=== PATIENT | female | born 1995 | race Two or more races ===

== ENCOUNTER 2024-01-13 17:01 | Inpatient (IN) | payer OTHER, SELFPAY ==
[2024-01-13] VITALS (16 sets, daily range): BP systolic 112–132; BP diastolic 62–114; PULSE 63–108; TEMP 36.3
[2024-01-13 18:08] LABS: Basophils Percent Auto 0.2 % (0.2-1.2); Eosinophils Absolute Auto 0.1 K/mm3 (0-0.3); Eosinophils Percent Auto 1.1 % (0-4.4); Hematocrit 35.9 % (37.0-47.0); Hemoglobin 12.2 g/dL (12.0-15.0); Immature Granulocyte Absolute 0.09 K/mm3 (0.00-0.031); Immature Granulocyte Percent A 0.9 % (0-0.5); Lymphocytes Absolute Auto 2.71 K/mm3 (0.9-3.2); Lymphocytes Percent Auto 26.8 % (18.3-44.2); Mean Corpuscular Hemoglobin 28.9 pg (26-34); Mean Corpuscular Volume 85.1 fl (80-100); Monocytes Absolute Auto 0.6 K/mm3 (0.1-0.6); Monocytes Percent Auto 5.9 % (2.6-8.5); Neutrophils Absolute Auto 6.6 K/mm3 (1.3-6.7); Neutrophils Percent Auto 65.1 % (45.5-73.1); Platelet Count Result 217 k/mm3 (150-375); Red Blood Count 4.22 M/mm3 (4.2-5.4); Red Cell Distribution Width 15.2 % (11.5-14.5); White Blood Count 10.1 K/mm3 (4.5-10.0)
[2024-01-13 18:18] LABS: Alanine Aminotransferase 12 U/L (6-35); Albumin Level 3.6 g/dL (3.5-5.1); Alkaline Phosphatase 134 U/L (38-126); Anion Gap 9 mmol/L (4-12); Aspartate Amino Transferase 30 U/L (14-36); Bilirubin,Total 0.1 mg/dL (0.2-1.3); Blood Urea Nitrogen 10 mg/dL (7-17); Calcium 9.1 mg/dL (8.4-10.2); Carbon Dioxide 19 mmol/L (22-30); Chloride 106 mmol/L (98-107); Estimated Glomerular Filt Rate > 60; Glucose 77 mg/dL (65-110); Potassium 3.9 mmol/L (3.4-5.0); Sodium 134 mmol/L (137-145); Uric Acid 3.8 mg/dL (2.5-7.5)
[2024-01-13] MEDS: DINOPROSTONE 10 MG VAG INSERT VAGINAL (18:18)
[2024-01-13 18:33] LABS: Rapid Plasma Reagin Non-Reactive (NonReactive)
[2024-01-13 18:58] LABS: HIV 1/2 Ab P24 Ag Result Negative (Negative)
--- NOTE | 2024-01-13 19:11 | LDADM ---
This patient, Dayana June, was admitted to Labor/Delivery/Recovery 105 on 01/13/24 at 17:01. Plans for labor, pain management and were discussed with patient. Patient/family oriented to hospital policies and general routines including ID bracelet, bed and alarms, visiting hours, pain management, procedures, bathroom and other care routines, personal items, smoking policy, room service/diet and guest tray routines, security routines, and visiting hours. Patient/Family are encouraged to report perceived risks to care and to ask questions if they do not understand what they are told or what they should do. See OBIX for further documentation.
--- NOTE | 2024-01-13 19:13 | WPDANESEPP ---
Anes - Eval Pre Procedure Procedure: Labor epidural Date/Time: 01/13/24 19:13 Surgeon: Dia Gregory Preop Diagnosis: Abdominal pain with contractions Pre Op Diagnosis: Induction of Labor Patient Data Age: 28 Gender: F Height: Weight: Last Vital Signs Temp 97.4 F L 01/13/24 19:00 Pulse 78 01/13/24 19:00 BP 124/80 01/13/24 19:00 Laboratory Tests 01/13/24 01/13/24 01/13/24 17:27 17:27 17:36 WBC 10.1 H K/mm3 (4.5-10.0) RBC 4.22 M/mm3 (4.2-5.4) Hgb 12.2 g/dL (12.0-15.0) Hct 35.9 L % (37.0-47.0) MCV 85.1 fl (80-100) MCH 28.9 pg (26-34) MCHC 34.0 g/dl (32-36) RDW 15.2 H % (11.5-14.5) Plt Count 217 k/mm3 (150-375) MPV 12.0 H fl (7.4-10.4) Immature Gran % (Auto) 0.9 H % (0-0.5) Neut % (Auto) 65.1 % (45.5-73.1) Lymph % (Auto) 26.8 % (18.3-44.2) [place] % (Auto) 5.9 % (2.6-8.5) Eos % (Auto) 1.1 % (0-4.4) Baso % (Auto) 0.2 % (0.2-1.2) Lymph # (Auto) 2.71 K/mm3 (0.9-3.2) [place] # (Auto) 0.6 K/mm3 (0.1-0.6) Eos # (Auto) 0.1 K/mm3 (0-0.3) Baso # (Auto) 0.0 K/mm3 (0.0-0.1) Abs Immat Gran (auto) 0.09 H K/mm3 (0.00-0.031) Absolute Neuts (auto) 6.6 K/mm3 (1.3-6.7) Absolute Nucleated RBC 0.000 K/mm3 (0.0-0.012) Nucleated RBC % 0.0 % (0.0-0.2) Sodium 134 L mmol/L (137-145) Potassium 3.9 mmol/L (3.4-5.0) Chloride 106 mmol/L (98-107) Carbon Dioxide 19 L mmol/L (22-30) Anion Gap 9 mmol/L (4-12) BUN 10 mg/dL (7-17) Creatinine 0.60 L mg/dL (0.7-1.0) Estim Creat Clear Calc Not Reportable Estimated GFR > 60 (59 - ) Glucose 77 mg/dL (65-110) Uric Acid Cancelled 3.8 mg/dL (2.5-7.5) Calcium 9.1 mg/dL (8.4-10.2) Total Bilirubin 0.1 L mg/dL (0.2-1.3) AST 30 U/L (14-36) ALT 12 U/L (6-35) Alkaline Phosphatase 134 H U/L (38-126) Total Protein 7.0 g/dL (6.3-8.2) Albumin 3.6 g/dL (3.5-5.1) RPR Non-reactive (NonReactive) HIV 1&2 Ab/P24 Ag 4thGn Negative (Negative) Blood Type O Positive Antibody Screen Negative : gestational age HCG: positive Patient hx anesthesia problems: none Family hx anesthesia problems: none Results Review: All pre-operative results and documents have been reviewed as part of the pre-operative evaluation. [facility] Past Medical History Medical History Obesity Preeclampsia and not yet delivered Exam Day of Procedure 01/13/24 19:13 Patient weight: obese Heart: regular rate and rhythm Airway: Mallampati scale class II
[2024-01-14] VITALS (247 sets, daily range): BP systolic 85–153; BP diastolic 45–137; PULSE 62–152; RESP 16–22; TEMP 36.5–37.5; O2SAT 60–100; BMI 47.4
[2024-01-14] MEDS: LACTATED RINGERS 1,000 ML 125 ML IV CONT ×3 (05:11→17:08)
[2024-01-14] MEDS: OXYTOCIN 30 UNITS/NS 500 ML 30 UNITS/500 ML BAG 6 UNITS IV CONT (05:11)
--- NOTE | 2024-01-14 07:25 | PM.IMHP ---
H&P: HPI History of Present Illness Date/Time: 01/14/24 07:25 Chief Complaint: Postdates with hypertension Narrative: twin D 8-year-old 1 para 0 with last menstrual period of 04/06/2023 EDC of 11 January 2024 confirmed by early ultrasound presents at term for induction of labor secondary to elevated blood pressures blood pressures been rising with the last in the office at 111 diastolic she had PIH labs drawn here the role okay in her blood pressure is recovering in the 90s diastolics. She is negative for group B strep PMFSH Past Medical History Medical History Obesity Preeclampsia and not yet delivered Social History Social History Smoking status: Never smoker Second hand tobacco smoke exposure: No Substance use: never Do You Feel Safe in your Home?: Yes Lack of Transportation: No Lack of Food: Never True Current Housing: I Have Housing Concerned About Future Housing: No Difficulty Paying Gas/Electric Bills: No Difficulty Paying for Meds: No Currently Unemployed: No Education: Bachelor's Degree Difficulty w/ Childcare or Family Care: No Spiritual care concerns: No Meds Home Medications and Allergies Home Medications Medication Instructions Recorded Confirmed Type vits 75-iron 28 mg-folic 1 pkg PO DAILY 01/13/24 01/13/24 History acid 800 mcg-omega3 440 mg oral pack Allergies Allergy/AdvReac Type Severity Reaction Status Date / Time Penicillins AdvReac Anaphylaxis Verified 01/14/24 05:11 Vital Signs Vital Signs - 24 hr 01/13/24 18:30 01/13/24 18:45 01/13/24 19:00 Temperature 97.4 F L Pulse Rate 82 78 Blood Pressure 122/86 132/114 H 124/80 Pulse Oximetry Oxygen Delivery 01/13/24 19:15 01/13/24 19:30 01/13/24 19:40 Temperature Pulse Rate 108 H 86 87 Blood Pressure 115/86 119/92 H 118/83 Pulse Oximetry Oxygen Delivery 01/13/24 19:50 01/13/24 20:00 01/13/24 20:10 Temperature Pulse Rate 80 75 97 Blood Pressure 131/74 122/81 116/82 Pulse Oximetry Oxygen Delivery 01/13/24 20:20 09/12/24 20:30 01/13/24 22:02 Temperature Pulse Rate 73 103 H 79 Blood Pressure 126/62 119/88 113/79 Pulse Oximetry Oxygen Delivery 01/13/24 22:30 01/13/24 23:00 01/13/24 23:30 Temperature Pulse Rate 69 63 95 Blood Pressure 121/76 129/83 112/78 Pulse Oximetry Oxygen Delivery 01/14/24 00:00 01/14/24 00:30 01/14/24 01:01 Temperature Pulse Rate 76 76 84 Blood Pressure 117/83 99/61 L 85/58 L Pulse Oximetry Oxygen Delivery 01/14/24 01:00 01/14/24 01:06 01/14/24 01:30 Temperature 97.8 F Pulse Rate 85 81 Blood Pressure 114/82 109/54 L Pulse Oximetry Oxygen Delivery 01/14/24 02:00 01/14/24 02:30 01/14/24 03:00 Temperature Pulse Rate 69 77 96 Blood Pressure 106/60 107/60 113/81 Pulse Oximetry Oxygen Delivery 01/14/24 03:30 01/14/24 04:00 01/14/24 04:30 Temperature Pulse Rate 72 78 95 Blood Pressure 103/61 111/68 122/82 Pulse Oximetry Oxygen Delivery 01/14/24 05:01 01/14/24 05:30 01/14/24 05:37 Temperature Pulse Rate 80 76 Blood Pressure 118/61 101/75 Pulse Oximetry 100 Oxygen Delivery 01/14/24 05:42 01/14/24 05:47 01/14/24 05:52 Temperature Pulse Rate Blood Pressure Pulse Oximetry 98 99 98 Oxygen Delivery 01/14/24 05:57 01/14/24 06:00 01/14/24 06:02 Temperature Pulse Rate 76 Blood Pressure 116/69 Pulse Oximetry 97 99 Oxygen Delivery 01/14/24 06:07 01/14/24 06:12 01/14/24 06:17 Temperature Pulse Rate Blood Pressure Pulse Oximetry 98 99 97 Oxygen Delivery 01/14/24 06:22 01/14/24 06:27 01/14/24 06:30 Temperature Pulse Rate 97 Blood Pressure 112/72 Pulse Oximetry 98 98 Oxygen Delivery 01/14/24 06:32
--- NOTE | 2024-01-14 11:38 | PM.OBPNLAB ---
Pain Control Date/time seen: 01/14/24 11:38 Pain control: tolerating well and epidural Pelvic Exam Dilation (cm): 4 Effacement (%): 90 station: -2 Amniotic membrane status: Leaking Comments: iupc placed
[2024-01-14] MEDS: ONDANSETRON INJ 4 MG/2 ML VIAL IV PUSH ×2 (14:19→19:23)
[2024-01-14] MEDS: AZITHROMYCIN 500 MG/NS 250 ML 500 MG/250 ML BAG 250 MG IVPB (21:37)
[2024-01-14] MEDS: FAMOTIDINE 20 MG/2 ML VIAL IV PUSH (21:37)
[2024-01-14] MEDS: ceFAZolin 2 GM/D5W 50 ML 2 GM/50 ML BAG IVPB (21:37)
[2024-01-14] MEDS: ACETAMINOPHEN 500 MG TABLET 1000 MG PO (21:38)
--- NOTE | 2024-01-14 21:43 | WPDHPUPDATE1 ---
History and Physical Update Update Date/Time: 01/14/24 21:43 History and Physical has been reviewed, including an updated exam of the patient. There are NO changes in the patient's condition. Risks, benefits, and alternatives have been discussed and questions answered. Patient agrees to proceed with procedure. fhts not tolerating and unable to push safely. offered section. risks/benefits given.
--- NOTE | 2024-01-14 22:35 | W.PM.OBCSD ---
OB - Delivery Note Procedure Delivery date: 01/14/24 Pre-op diagnosis: Gestational Hypertension Post-op Diagnosis: Same Induction method: Per Cervidil Protocol Delivery augmentation: Rupture of Membranes and Pitocin Delivery monitor: Internal FHT and Internal Uterine Prior to decision for section, ACOG/SMFM labor guidelines were considered and discussed with the patient and staff. Decision made to proceed with the section.: Yes Procedure Performed: Primary Surgeon: Haroon Gregory MD Anesthesia type: Epidural Description of Procedure/Findings: Was admitted for induction of labor on 01/13/2024. The a.m. artificial rupture membranes performed wrist very slow 1st stage of labor got to completely dilated but had recurrent late deceleration is and could not bring the baby past the +1 station. She was offered low-transverse section and taken to the back. The patient was prepped draped in the normal sterile fashion placed in the supine position. Under excellent epidural anesthesia the abdomen was entered in Pfannenstiel fashion progressive layers to the fascia. Fascia incised midline care number fashion bilaterally underlying muscles sharply dissected. Parietal peritoneum a by Janice clamps and by sharp dissection carried this was carried superiorly and inferiorly the dome of the bladder. Bladder blade placed. Bladder flap formed. Bladder blade returned. A low transverse incision made the head delivered in the SIMONE position. Cord clamped x2 and cut and passed off the table. Placenta delivered intact manually. Uterus delivered from the abdomen wrapped in a moist towel. After assuring no membranes or debris remained in the uterus, the uterus was closed in continuous running locking 0 Vicryl from lateral edge to lateral edge. This was followed by 2nd imbricating running locking 0 Vicryl from lateral edge to lateral edge. Hemostasis was assured. Ovaries and tubes appeared within normal limits the uterus returned to the abdomen. The hysterotomy incision inspected 1 last time and appeared a little raw so [place] term was placed. No active bleeding was seen. Laps removed and accounted for. The fascia closed with continuous running 0 Vicryl from lateral edge to lateral edge. Skin closed with 4 Monocryl and glue. QBL was 480cc. All sponge, needle, instrument counts were correct. There were no immediate complications Specimen: No Estimated Blood Loss: 480 Drains: No Packing: No Pathology: None sent Complications: No immediate complications Condition: Stable Disposition: Floor Baby Date of : 01/14/24 Gestational Age by Date: 40 Infant gender: Female Weight (pounds): 7 Weight (ounces): 1 presentation: vertex position: Right Occiput Anterior Placenta delivery description: Manual Removal Cord Vessel Description: 3 Vessels
--- NOTE | 2024-01-14 22:39 | PM.DS ---
DS: Admitting Diagnosis Discharge Date 01/17/2024 Admitting Diagnosis term /gestational hypertension DS: Discharge Diagnosis Discharge Diagnosis (1) Preeclampsia: Code(s): O14.90 - Unspecified pre-eclampsia, unspecified trimester Status: Acute (2) Term : Code(s): Z34.90 - Encounter for supervision of normal , unspecified, unspecified trimester Status: Acute DS: Summary Hospital Course Reason for hospitalization: patient was admitted on the evening of 01/13/2024 for induction of labor on 01/14/2024 she underwent low-transverse section for intolerance to labor. Hospital Course: Patient's hospital course unremarkable. She remained afebrile. She was up, voiding without difficulty a medium rate diet, ambulating, and generally without complaints. Time Spent with Patient Time attestation: Total time spent providing and/or coordinating discharge services: Exam Const: General: cooperative, healthy appearing, comfortable and average body habitus Orientation/consciousness: oriented to person, oriented to place and oriented to time Resp: Effort & Inspection: normal respiratory effort Cardio: Rate: regular rate Rhythm: regular rhythm Heart sounds: S1 normal heart sound present and S2 normal heart sound present GI: Inspection: normal to inspection and incision ( Wound is clean dry and intact) Discharge Plan Discharge Attending physician on discharge: Haroon Melgar Discharging Clinician: Haroon Melgar Patient Disposition: Home, Self-Care Activity: may shower, no straining and pelvic rest Diet: heart healthy Wound Care Instructions: follow printed instructions Patient Instructions: Antibiotic Form Stand Alone Forms: General Discharge Information Follow-up/Referrals: Haroon Melgar MD [Physician] - Discharge Medications: New hydrocodone-acetaminophen 5-325 mg tablet 1 tablet PO Q4H PRN (Reason: pain) Qty: 30 0RF Continued Daily 28-800-440 mg-mcg-mg Combo Pack 1 pkg PO DAILY Date of admission: 01/13/24 17:01 Primary Care Provider: UNKNOWN,DOCTOR Admitting Provider: Haroon Melgar Attending physician on admission: Haroon Melgar Condition: Stable
[2024-01-15] VITALS (21 sets, daily range): BP systolic 101–149; BP diastolic 64–86; PULSE 77–98; RESP 15–18; TEMP 36.1–36.7; O2SAT 97–100
--- NOTE | 2024-01-15 00:54 | OBPPTRN ---
Patient transferred to post room #279 via stretcher. Support person-spouse present. Oriented to unit, room, information board, rooming in, admission packet and security measures. Nursery number provided to call for updates on level 2 infant. Patient verbalizes understanding.
[2024-01-15] MEDS: KETOROLAC 15 MG/ML VIAL (*BKC) IV PUSH ×2 (01:35→07:35)
[2024-01-15] MEDS: LIDOCAINE 5% PATCH 1 PATCH TRANSDERM (01:35)
[2024-01-15] MEDS: ACETAMINOPHEN 325 MG TABLET 650 MG PO ×4 (01:35→19:48)
--- NOTE | 2024-01-15 01:59 | PC.NURSE ---
Breast pump provided due to separation from level 2 . Education and encouragement given to call out when ready to pump for assistance. Patient verbalized understanding.
[2024-01-15 04:39] LABS: Basophils Percent Auto 0.1 % (0.2-1.2); Hematocrit 28.7 % (37.0-47.0); Hemoglobin 9.3 g/dL (12.0-15.0); Immature Granulocyte Absolute 0.08 K/mm3 (0.00-0.031); Immature Granulocyte Percent A 0.6 % (0-0.5); Lymphocytes Absolute Auto 1.38 K/mm3 (0.9-3.2); Lymphocytes Percent Auto 9.6 % (18.3-44.2); Mean Corpuscular HGB Conc 32.4 g/dl (32-36); Mean Corpuscular Hemoglobin 28.4 pg (26-34); Mean Corpuscular Volume 87.8 fl (80-100); Mean Platelet Volume 11.9 fl (7.4-10.4); Monocytes Absolute Auto 0.9 K/mm3 (0.1-0.6); Monocytes Percent Auto 5.9 % (2.6-8.5); Neutrophils Absolute Auto 12.1 K/mm3 (1.3-6.7); Neutrophils Percent Auto 83.8 % (45.5-73.1); Platelet Count Result 152 k/mm3 (150-375); Red Blood Count 3.27 M/mm3 (4.2-5.4); Red Cell Distribution Width 15.4 % (11.5-14.5); White Blood Count 14.4 K/mm3 (4.5-10.0)
--- NOTE | 2024-01-15 07:18 | P.PNOB_ITS ---
OB - PN: Subj Subjective Date/time seen: 01/15/24 07:18 Patient comments: no complaints and pain well controlled baby status: doing well OB - PN: Obj Data Labs 01/15/24 04:31 01/13/24 17:27 Labs: Laboratory Results - last 24 hr 01/15/24 04:31 WBC 14.4 H RBC 3.27 L Hgb 9.3 L Hct 28.7 L MCV 87.8 MCH 28.4 MCHC 32.4 RDW 15.4 H Plt Count 152 MPV 11.9 H Immature Gran % (Auto) 0.6 H Neut % (Auto) 83.8 H Lymph % (Auto) 9.6 L [place] % (Auto) 5.9 Eos % (Auto) 0.0 Baso % (Auto) 0.1 L Lymph # (Auto) 1.38 [place] # (Auto) 0.9 H Eos # (Auto) 0.0 Baso # (Auto) 0.0 Abs Immat Gran (auto) 0.08 H Absolute Neuts (auto) 12.1 H Absolute Nucleated RBC 0.000 Nucleated RBC % 0.0 OB - PN A/P Plan day: 1 Plan: routine care Time Spent With Patient Time: Total time spent is greater than 50% in coordination of care (as documented) at patient's floor/unit and/or counseling patient: Time with patient: less than 15 minutes Exam Const: General: cooperative, healthy appearing and comfortable Nutritional Appearance: average body habitus Orientation/consciousness: oriented to person, oriented to place and oriented to time HENMT: Head: normal to inspection Resp: Effort & Inspection: normal respiratory effort Cardio: Rate: regular rate Rhythm: regular rhythm Heart sounds: S1 normal heart sound present and S2 normal heart sound present GI: Inspection: normal to inspection and incision (cdi)
[2024-01-15] MEDS: DEXTROSE 5%/0.45% SOD CHL 1,000 ML 125 ML IV CONT (07:35)
[2024-01-15] MEDS: POLYSACCHARIDE IRON COMPLEX 150 MG CAPSULE PO ×2 (07:36→17:16)
[2024-01-15] MEDS: SIMETHICONE 80 MG TAB.CHEW PO ×3 (07:37→17:16)
[2024-01-15] MEDS: DOCUSATE SODIUM 100 MG CAPSULE PO ×2 (07:37→17:16)
--- NOTE | 2024-01-15 10:13 | WPDANLDPN2 ---
Anes-Prog Note L&D Date/Time: 01/15/24 10:13 Comfortable throughout: labor and section Neuraxial method: epidural Epidural/Spinal procedure site: clean & non-tender Neuro status: Neuro function grossly intact. Cardiovascular status: normal Respiratory status: normal Airway patency: baseline Mental status: baseline Post-Op hydration status: normal Vital Signs: Last Vital Signs Temp 97.7 F 01/15/24 07:50 Pulse 88 01/15/24 07:50 Resp 18 01/15/24 07:50 BP 105/68 01/15/24 07:50 Pulse Ox 98 01/15/24 07:50 O2 Del Method Room Air 01/15/24 00:30 Pain score (VAS): 3 I/O: Intake & Output 01/14/24 01/15/24 01/15/24 23:59 07:59 15:59 Intake Total 922.9 550 Output Total 730 100 Balance 192.9 450 Post-procedural complaints: none Patient feedback: Patient satisfied with anesthetic care.
--- NOTE | 2024-01-15 10:13 | WPDANLDNPN2 ---
Anes-Prog Note L&D-Neuraxial Date/Time: 01/15/24 10:13 Neuraxial medications: epidural PF morphine Opiod-related complaints: none Patient feedback: Patient satisfied with post-operative pain management.
[2024-01-15] MEDS: MULTIVIT/MIN/PREN/FOL AC/IRON TABLET 1 TAB PO (13:40)
[2024-01-15] MEDS: IBUPROFEN 600 MG TABLET PO ×2 (13:47→19:48)
[2024-01-15] MEDS: LANOLIN (LANSINOH) 7.5 GM CREAM 1 APPLIC TOPICAL (22:54)
[2024-01-16] MEDS: IBUPROFEN 600 MG TABLET PO ×4 (01:39→19:25)
[2024-01-16] MEDS: ACETAMINOPHEN 325 MG TABLET 650 MG PO ×4 (01:39→19:25)
[2024-01-16] MEDS: LIDOCAINE 5% PATCH 1 PATCH TRANSDERM (01:40)
[2024-01-16 03:50] VITALS: BP 101/62; PULSE 83; RESP 16; TEMP 36.6; O2SAT 98
[2024-01-16] MEDS: SIMETHICONE 80 MG TAB.CHEW PO ×3 (07:49→16:10)
[2024-01-16] MEDS: DOCUSATE SODIUM 100 MG CAPSULE PO ×2 (07:50→16:10)
[2024-01-16] MEDS: POLYSACCHARIDE IRON COMPLEX 150 MG CAPSULE PO ×2 (07:50→16:10)
[2024-01-16] MEDS: MULTIVIT/MIN/PREN/FOL AC/IRON TABLET 1 TAB PO (07:50)
[2024-01-16 07:51] VITALS: BP 108/59; PULSE 76; RESP 16; TEMP 36.7; O2SAT 100
--- NOTE | 2024-01-16 10:56 | PM.OBPNVD ---
OB - PN: Subj Subjective Date/time seen: 01/16/24 10:45 Interval history: Post Day 2 from primary LTCS. Doing well. Urinating without difficulty. Denies passing any large clots. Denies dizziness with ambulating. Tolerating po food and fluids. Bonding with infant. fairly well. Patient comments: pain well controlled baby status: nursing well (using shield) [place] feeding status: breast and bottle feeding OB - PN: Obj Data Labs 01/15/24 04:31 01/13/24 17:27 OB - PN A/P Assessment and Plan (1) Preeclampsia: Qualifiers: Trimester: third trimester Qualified Code(s): O14.93 - Unspecified pre-eclampsia, third trimester Code(s): O14.90 - Unspecified pre-eclampsia, unspecified trimester Status: Acute Assessment and Plan: BPs WNL. [place] VOSS, visual changes, RUQ pain, change in edema. (2) Term : Code(s): Z34.90 - Encounter for supervision of normal , unspecified, unspecified trimester Status: Acute (3) delivery delivered: Code(s): O82 - Encounter for delivery without indication Status: Acute Plan day: 2 Plan: routine care Time Spent With Patient Time: Total time spent is greater than 50% in coordination of care (as documented) at patient's floor/unit and/or counseling patient: Review of Systems Review of Systems: All systems reviewed & are unremarkable except as noted in HPI and below Exam Const: General: cooperative, no acute distress and awake Orientation/consciousness: patient oriented x3 Limitations: no limitations Resp: Effort & Inspection: normal respiratory effort and able to speak in complete sentences Auscultation: clear to auscultation bilaterally Cardio: Rate: regular rate Peripheral pulses: Peripheral pulses 2+ throughout GI: Inspection: normal to inspection Auscultation: normal bowel sounds : General: Yes bladder normal to palpation Speculum Exam - Vagina: vaginal bleeding Bimanual exam- vagina & uterus: bladder normal to palpation OB/external & speculum: vaginal bleeding Other: Fundus firm Skin: General skin exam: normal color Other: Incision C/D/I. Lidocaine patch in place above. Neuro: General: patient oriented x3 Cognition (Neuro): normal cognition Speech: normal speech Extrem: General: normal to inspection Psych: Appearance: grossly normal Mental Status: mental status grossly normal Speech and movement: Normal speech and movement present Affect: normal affect Attitude: cooperative Thought process: Normal thought process present
[2024-01-16 12:06] VITALS: BP 96/57
--- NOTE | 2024-01-16 13:50 | PC.NURSE ---
Pt had two voids today and did not use the Uhat because she had BM's with voids.
[2024-01-16 16:15] VITALS: BP 121/85; PULSE 97; RESP 20
[2024-01-16 19:10] VITALS: BP 128/67; PULSE 89; RESP 18; TEMP 37.6
[2024-01-17 00:03] VITALS: BP 128/73; PULSE 85; RESP 18; TEMP 37.1
[2024-01-17] MEDS: IBUPROFEN 600 MG TABLET PO ×2 (01:16→07:09)
[2024-01-17] MEDS: LIDOCAINE 5% PATCH 1 PATCH TRANSDERM (01:16)
[2024-01-17] MEDS: ACETAMINOPHEN 325 MG TABLET 650 MG PO ×2 (01:16→07:09)
[2024-01-17 05:30] VITALS: BP 124/69; PULSE 79; RESP 16; TEMP 36.8
[2024-01-17] MEDS: DOCUSATE SODIUM 100 MG CAPSULE PO (07:09)
[2024-01-17] MEDS: MULTIVIT/MIN/PREN/FOL AC/IRON TABLET 1 TAB PO (07:09)
[2024-01-17] MEDS: SIMETHICONE 80 MG TAB.CHEW PO (07:09)
[2024-01-17] MEDS: POLYSACCHARIDE IRON COMPLEX 150 MG CAPSULE PO (07:09)
--- NOTE | 2024-01-17 07:36 | P.PNOB_ITS ---
OB - PN: Subj Subjective Date/time seen: 01/17/24 07:36 Interval history: Post Day 2 from primary LTCS. Doing well. Urinating without difficulty. Denies passing any large clots. Denies dizziness with ambulating. Tolerating po food and fluids. Bonding with . fairly well. Patient comments: no complaints and pain well controlled [place] baby status: doing well and nursing well OB - PN: Obj Data Labs 01/15/24 04:31 01/13/24 17:27 OB - PN A/P Plan day: 3 Plan: routine care, discharge home and follow up 6 weeks (4) Time Spent With Patient Time: Total time spent is greater than 50% in coordination of care (as documented) at patient's floor/unit and/or counseling patient: Time with patient: less than 15 minutes Exam Const: General: cooperative, healthy appearing and comfortable Nutritional Appearance: average body habitus Orientation/consciousness: oriented to person, oriented to place and oriented to time HENMT: Head: normal to inspection Resp: Effort & Inspection: normal respiratory effort Cardio: Rate: regular rate Rhythm: regular rhythm Heart sounds: S1 normal heart sound present and S2 normal heart sound present GI: Inspection: normal to inspection and incision (cdi)
--- NOTE | 2024-01-17 08:05 | PC.NURSE ---
Consulted with mother concerning needs and she shared her ability to independently latch infant using a nipple shield optimally without pain. Mother is feeding appropriately for growth of infant and understands stimulating to eat if needed. has had appropriate feedings in the last 24 hours meets the outcomes for weight, output, blood sugar and jaundice at this time. Reinforced understanding of milk production, transition of milk, signs of adequate intake, transition of stool, prevention/relief of engorgement, plugged ducts, mastitis, responsive watching for feeding cues, the different methods of stimulating infant to breastfeed 1-3 hours after the start of the last feeding, community resources, and when to call a provider using the resource of the feeding sheet along with the mom and baby guide. Mother is also pumping - states im not making any milk - encouraged to continue pumping every 2-3 hours and put baby to breast as much as possible in addition to giving formula for supplementation. Instructions given on cleaning, care, usage, that there should be no pain, pumping schedule for milk production, collection, and storage of human milk.
[2024-01-17 08:10] VITALS: BP 123/84; PULSE 80; RESP 16; TEMP 36.7; O2SAT 100
[2024-01-18 12:50] VITALS: BP 134/89; PULSE 87; RESP 18; TEMP 37.2; O2SAT 100
== END 2024-01-17 11:43 | disposition home or self-care (01) | DRG 788 ==
LOC: ANHLDR 01-14 21:47 → ANHOB2 01-15 00:55
PROVIDERS: Admitting Provider Obstetrics & Gynecology; Visit Provider Obstetrics & Gynecology
PROC: 10D00Z1 Extraction of Products of Conception, Low, Open Approach (ICD-10-PCS; CPT 59514; principal; 2024-01-14 21:20)
DX: O14.04 Mild to moderate pre-eclampsia, complicating childbirth (principal); O13.4 Gestational [pregnancy-induced] hypertension without significant proteinuria, complicating childbirth; O76 Abnormality in fetal heart rate and rhythm complicating labor and delivery; O99.214 Obesity complicating childbirth; Z3A.40 40 weeks gestation of pregnancy; Z37.0 Single live birth
CPT/HCPCS: 36415; 80053; 84550; 85025; 86592; 86703; 86850; 86900; 86901; A9270; G0432; J0456; J0690; J1885; J2274; J2371; J2405; J2590; J2795; J7120